=== PATIENT | female | born 1975 | race American Indian/Alaskan Native ===

== ENCOUNTER 2021-02-18 22:02 | Inpatient (IN) | payer MEDICARE ==
[2021-02-18] MEDS ORDERED: ONDANSETRON 4 MG/2 ML INJ IV ONE (22:21)
[2021-02-18] MEDS ORDERED: SODIUM CHLORIDE 0.9% 1000 ML 1,000 ML IV ONE (22:21)
[2021-02-18] MEDS ORDERED: MORPHINE 4 MG/1 ML INJ IV ONE (22:21)
[2021-02-18] MEDS ORDERED: FAMOTIDINE 20 MG/2 ML INJ IV ONE (22:21)
[2021-02-18 23:01] LABS: Basophils % (Auto) 0.4 % (0.0-1.8); Eosinophils # (Auto) 0.1 K/mm3 (0.0-0.4); Eosinophils % (Auto) 1.3 % (0.0-4.3); Hematocrit 35.5 % (30.3-42.9); Hemoglobin 11.9 gm/dl (10.1-14.3); Lymphocytes # (Auto) 0.8 K/mm3 (1.2-5.4); Lymphocytes % (Auto) 8.7 % (13.4-35.0); Mean Corpuscular HGB Conc 33 % (30-34); Mean Corpuscular Volume 81 fl (79-97); Monocytes # (Auto) 0.5 K/mm3 (0.0-0.8); Platelet Count 363 K/mm3 (140-440); Red Blood Count 4.37 M/mm3 (3.65-5.03); Red Cell Distribution Width 15.5 % (13.2-15.2)
--- NOTE | 2021-02-18 23:07 | Emergency Department Report ---
ED Abdominal Pain HPI - General Chief Complaint: Abdominal Pain Stated Complaint: ABDOMINAL PAIN Source: patient Mode of arrival: Ambulatory Limitations: No Limitations - History of Present Illness Initial Comments: Patient is a 45-year-old -[place]namese female with a history of Crohn's disease, chronic costochondritis, anxiety and depression who presents to the ED with complaint of acute onset persistent acute right upper quadrant abdominal pain that radiates to the epigastric area with nausea and vomiting for the last 4 hours. Patient states that the pain gets worse with food and vomiting. Patient denies shoulder pain, chest pain, shortness of breath, fever, chills, cough, sore throat, headache, dizziness, syncope, hematemesis, hematochezia, diarrhea, dysuria, urinary frequency and urgency, vaginal bleeding or vaginal discharge, back pain and dyspareunia or vaginal discharge. MD Complaint: abdominal pain (Right upper quadrant pain radiating to the epigastric area), other (Nausea and vomiting) -: Sudden, hour(s) (4) Location: RUQ, epigastric Radiation: RUQ, epigastric Migration to: no migration Severity scale (0 -10): 7 Quality: cramping, aching, sharp Consistency: constant Improves With: nothing Worsens With: eating, vomiting Associated Symptoms: denies other symptoms, nausea, vomiting, anorexia. denies: diarrhea, fever, chills, constipation, dysuria, hematemesis, hematochezia, melena, hematuria, syncope, other - Related Data Allergies Allergy/AdvReac Type Severity Reaction Status Date / Time methylprednisolone Allergy Hives Verified 02/18/21 22:26 [From Solu-Medrol] Penicillins AdvReac Hives Verified 02/18/21 22:25 ED Review of Systems ROS: Stated complaint: ABDOMINAL PAIN Other details as noted in HPI Constitutional: denies: chills, fever Eyes: denies: eye pain, eye discharge, vision change ENT: denies: ear pain, throat pain Respiratory: denies: cough, shortness of breath, wheezing Cardiovascular: denies: chest pain, palpitations Endocrine: no symptoms reported Gastrointestinal: abdominal pain (Right upper quadrant and epigastric pain), nausea, vomiting. denies: diarrhea Genitourinary: denies: urgency, dysuria, discharge Musculoskeletal: denies: back pain, joint swelling, arthralgia Skin: denies: rash, lesions Neurological: denies: headache, weakness, paresthesias Psychiatric: denies: anxiety, depression Hematological/Lymphatic: denies: easy bleeding, easy bruising ED Past Medical Hx - Past Medical History Additional medical history: Chron's disease, depression, anxiety, chostocondritis - Surgical History Past Surgical History?: Yes Hx Appendectomy: Yes Additional Surgical History: abdominal, - Social History Smoking Status: Former Smoker Substance Use Type: Alcohol ED Physical Exam - General Limitations: No Limitations General appearance: alert, in no apparent distress - Head Head exam: Present: atraumatic, normocephalic, normal inspection - Eye Eye exam: Present: normal appearance, PERRL, EOMI Pupils: Present: normal accommodation - ENT ENT exam: Present: normal exam, normal orophraynx, mucous membranes moist, TM's normal bilaterally, normal external ear exam - Neck Neck exam: Present: normal inspection, full ROM - Respiratory Respiratory exam: Present: normal lung sounds bilaterally. Absent: respiratory distress, wheezes, rales, stridor, chest wall tenderness, accessory muscle use, decreased breath sounds, prolonged expiratory - Cardiovascular Cardiovascular Exam: Present: regular rate, normal rhythm, normal heart sounds. Absent: systolic murmur, diastolic murmur, rubs, gallop - GI/Abdominal GI/Abdominal exam: Present: soft, tenderness (Palpable right upper quadrant and epigastric tenderness with a positive Hammond sign), guarding, normal bowel sounds. Absent: rebound, rigid, hyperactive bowel sounds, hypoactive bowel sounds, organomegaly, mass - Extremities Exam Extremities exam: Present: normal inspection, full ROM, normal capillary refill - Back Exam Back exam: Present: normal inspection, full ROM. Absent: tenderness, CVA tenderness (R), CVA tenderness (L), muscle spasm, paraspinal tenderness, vertebr al tenderness - Neurological Exam Neurological exam: Present: alert, oriented X3, CN II-XII intact, normal gait, reflexes normal - Psychiatric Psychiatric exam: Present: normal affect, normal mood - Skin Skin exam: Present: warm, dry, intact, normal color. Absent: rash ED Course Vital Signs 02/18/21 22:23 Temperature 98.2 F Pulse Rate 70 Respiratory 16 Rate Blood Pressure 133/85 [Right] O2 Sat by Pulse 98 Oximetry - Reevaluation(s) Reevaluation #1: 02/19/21 04:00 I paged and discussed the patient's case with the general surgeon on-call Dr. Barnes who advised the patient be kept n.p.o. with an option of soft diet later on once her nausea and vomiting is controlled, and to have the patient admitted by hospitalist physician on-call, and to have the patient started on IV antibiotics and pain control. Dr. Barnes to evaluate the patient subsequently upon admission. ED Medical Decision Making - Lab Data Result diagrams: 02/18/21 22:36 02/18/21 22:36 - Radiology Data [facility] [address] [place] [address] Ultrasound Report Signed Patient: PENELOPE LARIOS MR#: [id number] : 1975 Acct:[id number] Age/Sex: 45 / F ADM Date: 02/18/21 Loc: ED Attending Dr: Ordering Physician: SAEID BUTLER Date of Service: 02/18/21 Procedure(s): US abdomen limited Accession Number(s): [id number] cc: SAEID BUTLER ULTRASOUND ABDOMEN, LIMITED (RIGHT UPPER QUADRANT) INDICATION: RUQ Abdominal pain. COMPARISON: None available. FINDINGS: Pancreas: Visualized portion shows no significant abnormality. Liver: Normal. Gallbladder: Multiple calcified gallstones with posterior shadowing . Gallbladder wall measures 4 mm. Bile ducts: Normal. Common Bile Duct measures 4 mm. Free fluid: None. Additional Findings: None. IMPRESSION: 1. Cholelithiasis with thickened gallbladder wall suggestive for cholecystitis Signer Name: Yair Funk MD Signed: 02/19/2021 1:33 AM Workstation Name: [id number] Transcribed By: TL Dictated By: Yair Funk MD Electronically Authenticated By: Yair Funk MD Signed Date/Time: 02/19/21132 DD/ 1 TD/TT: - Medical Decision Making This is a 45-year-old -Vietnamese female with a history of Crohn's disease, chronic costochondritis, anxiety and depression who presents to the ED with complaint of acute onset persistent acute right upper quadrant abdominal pain that radiates to the epigastric area with nausea and vomiting for the last 4 hours. Patient states that the pain gets worse with food and vomiting. In the ED, patient is alert and oriented x3 and is not in any distress. Patient was treated for pain in the ED and also given antiemetics, antacids and normal saline 1 L IV bolus x1. All lab test results were reviewed and are all nonactionable. Gallbladder ultrasound showed cholelithiasis with thickened gallbladder wall suggestive for cholecystitis. On reevaluation, patient's pain is well controlled medications. I discussed the patient's case with the ED attending physician Dr. Tyler who advised the general surgeon be consulted and paged for further direction. I therefore paged and discussed the patient's case with the general surgeon on-call Dr. Barnes who advised that the patient be admitted to the hospital by the hospitalist physician on-call and that the patient be kept n.p.o. with an option of soft diet once her nausea and vomiting is well controlled. Dr. Barnes was advised the patient be started on IV antibiotics appropriately and she shall consult the patient subsequently. I therefore paged and discussed the patient's case with the hospitalist physician on-call Dr. Sims who admitted the patient to the hospital for further evaluation and treatment. I therefore discussed the plan of care for admission with the patient would agreed with the plan to admit to the hospital for possible lap cholecystectomy. - Differential Diagnosis Cholelithiasis; cholecystitis; GERD; gastroenteritis; gastritis; ACS; UTI; Critical care attestation.: If time is entered above; I have spent that time in minutes in the direct care of this critically ill patient, excluding procedure time. ED Disposition Clinical Impression: Acute abdominal pain in right upper quadrant, Nausea and vomiting in adult pat ient Cholelithiasis and cholecystitis without obstruction Qualifiers: Cholelithiasis location: gallbladder Cholecystitis acuity: acute Qualified Code(s): K80.00 - Calculus of gallbladder with acute cholecystitis without obstruction Disposition: 02 SHORT TERM HOSPITAL Is pt being admited?: Yes Does the pt Need Aspirin: No Condition: Stable Instructions: Abdominal Pain (ED) Time of Disposition: 03:04 Print Language: ROMANIAN
[2021-02-18 23:17] LABS: Alanine Aminotransferase 23 units/L (7-56); Albumin 4.1 g/dL (3.9-5); BUN/Creatinine Ratio 12; Blood Urea Nitrogen 12 mg/dL (7-17); Hemolysis Index 4
--- NOTE | 2021-02-19 01:38 | Ultrasound Report ---
ULTRASOUND ABDOMEN, LIMITED (RIGHT UPPER QUADRANT) INDICATION: RUQ Abdominal pain. COMPARISON: None available. FINDINGS: Pancreas: Visualized portion shows no significant abnormality. Liver: Normal. Gallbladder: Multiple calcified gallstones with posterior shadowing . Gallbladder wall measures 4 mm . Bile ducts: Normal. Common Bile Duct measures 4 mm. Free fluid: None. Additional Findings: None. IMPRESSION: 1. Cholelithiasis with thickened gallbladder wall suggestive for cholecystitis Signer Name: Yair Funk MD Signed: 02/19/2021 1:33 AM Workstation Name: [id number]
[2021-02-19 02:35] LABS: Bacteria,Urine 1+ /HPF (Negative); Bilirubin,Urine NEG (Negative); Blood,Urine LG (Negative); Color,Urine Yellow (Yellow); Mucus,Urine FEW /HPF; Protein,Urine <15 mg/dL mg/dL (Negative); Urobilinogen,Urine < 2.0 mg/dL (<2.0)
[2021-02-19] MEDS ORDERED: metroNIDAZOLE/NS 500 MG/100 ML 500 MG/100 ML BAG IV ONE ×2 (02:52)
[2021-02-19] MEDS ORDERED: MORPHINE 2 MG/1 ML INJ IV ONE (03:24)
[2021-02-19] MEDS ORDERED: MORPHINE 2 MG/1 ML INJ ONE (03:25)
[2021-02-19] MEDS ORDERED: ONDANSETRON 4 MG/2 ML INJ IV PRN ×2 (04:05→04:54)
[2021-02-19] MEDS ORDERED: MORPHINE 2 MG/1 ML INJ IV PRN (04:05)
[2021-02-19] MEDS ORDERED: ACETAMINOPHEN 325 MG TAB PO PRN ×2 (04:05→04:54)
--- NOTE | 2021-02-19 05:01 | History and Physical Report ---
History of Present Illness Date of examination: 02/19/21 Date of admission: 02/19/21 Chief complaint: Abdominal pain History of present illness: 45-year-old -[place]ym[place] female with a history of Crohn's disease, chronic costochondritis, anxiety and depression who presents to the ED with complaint of acute onset persistent acute right upper quadrant abdominal pain that radiates to the epigastric area with nausea and vomiting for the last 4 hours. Patient states that the pain gets worse with food and vomiting. Patient denies shoulder pain, chest pain, shortness of breath, fever, chills, cough, sore throat, headache, dizziness, syncope, hematemesis, hematochezia, In the emergency room abdominal ultrasound shows cholelithiasis with thickened gallbladder wall suggestive of cholecystitis. We consulted surgery for evaluation and treatment Med rec is not available Past History Past Medical History: other (Crohn's disease, costochondritis, anxiety, depression) Medications and Allergies Allergies Allergy/AdvReac Type Severity Reaction Status Date / Time methylprednisolone Allergy Hives Verified 02/18/21 22:26 [From Solu-Medrol] Penicillins AdvReac Hives Verified 02/18/21 22:25 Active Meds: Active Medications Acetaminophen (Acetaminophen 325 Mg Tab) 650 mg PO Q4H PRN PRN Reason: Pain MILD(1-3)/Fever >100.5/RAWLS Hydromorphone HCl (Hydromorphone 1 Mg/1 Ml Inj) 0.5 mg IV Q3H PRN PRN Reason: Pain , Severe (7-10) Levofloxacin/Dextrose (Levaquin 750mg/150ml) 750 mg in 150 mls @ 100 mls/hr IV Q24H SUE; Protocol Last Admin: 02/19/21 04:23 Dose: 100 mls/hr Documented by: Morphine Sulfate (Morphine 2 Mg/1 Ml Inj) 2 mg IV Q4H PRN PRN Reason: Pain, Moderate (4-6) Ondansetron HCl (Ondansetron 4 Mg/2 Ml Inj) 4 mg IV Q8H PRN PRN Reason: Nausea And Vomiting Sodium Chloride (Sodium Chloride 0.9% 10 Ml Flush Syringe) 10 ml IV BID SUE Sodium Chloride (Sodium Chloride 0.9% 10 Ml Flush Syringe) 10 ml IV PRN PRN PRN Reason: LINE FLUSH Review of Systems All systems: negative Gastrointestinal: abdominal pain, nausea, vomiting Exam - Constitutional Vitals: Temp Pulse Resp BP Pulse Ox 98.2 F 70 16 133/85 98 02/18/21 22:23 02/18/21 22:23 02/18/21 22:23 02/18/21 22:23 02/18/21 22:23 General appearance: Present: no acute distress, well-nourished - EENT Eyes: Present: PERRL ENT: hearing intact, clear oral mucosa - Neck Neck: Present: supple, normal ROM - Respiratory Respiratory effort: normal Respiratory: bilateral: CTA - Cardiovascular Heart Sounds: Present: S1 & S2. Absent: rub, click - Extremities Extremities: pulses symmetrical, No edema Peripheral Pulses: within normal limits - Abdominal General gastrointestinal: Present: soft, tender, non-distended, normal bowel sounds Female genitourinary: Present: normal - Integumentary Integumentary: Present: clear, warm, dry - Musculoskeletal Musculoskeletal: gait normal, strength equal bilaterally - Psychiatric Psychiatric: appropriate mood/affect, intact judgment & insight - Neurologic Neurologic: CNII-XII intact, moves all extremities HEART Score - HEART Score Troponin: Troponin T < 0.010 ng/mL (0.00-0.029) 02/18/21 22:36 Results - Labs CBC & Chem 7: 02/18/21 22:36 02/18/21 22:36 Labs: Laboratory Last Values WBC 9.8 K/mm3 (4.5-11.0) 02/18/21 22:36 RBC 4.37 M/mm3 (3.65-5.03) 02/18/21 22:36 Hgb 11.9 gm/dl (10.1-14.3) 02/18/21 22:36 Hct 35.5 % (30.3-42.9) 02/18/21 22:36 MCV 81 fl (79-97) 02/18/21 22:36 MCH 27 pg (28-32) L 02/18/21 22:36 MCHC 33 % (30-34) 02/18/21 22:36 RDW 15.5 % (13.2-15.2) H 02/18/21 22:36 Plt Count 363 K/mm3 (140-440) 02/18/21 22:36 Lymph % (Auto) 8.7 % (13.4-35.0) L 02/18/21 22:36 [place] % (Auto) 5.0 % (0.0-7.3) 02/18/21 22:36 Eos % (Auto) 1.3 % (0.0-4.3) 02/18/21 22:36 Baso % (Auto) 0.4 % (0.0-1.8) 02/18/21 22:36 Lymph # (Auto) 0.8 K/mm3 (1.2-5.4) L 02/18/21 22:36 [place] # (Auto) 0.5 K/mm3 (0.0-0.8) 02/18/21 22:36 Eos # (Auto) 0.1 K/mm3 (0.0-0.4) 02/18/21 22:36 Baso # (Auto) 0.0 K/mm3 (0.0-0.1) 02/18/21 22:36 Seg Neutrophils % 84.6 % (40.0-70.0) H 02/18/21 22:36 Seg Neutrophils # 8.3 K/mm3 (1.8-7.7) H 02/18/21 22:36 Sodium 139 mmol/L (137-145) 02/18/21 22:36 Potassium 3.9 mmol/L (3.6-5.0) 02/18/21 22:36 Chloride 104.5 mmol/L (98-107) 02/18/21 22:36 Carbon Dioxide 22 mmol/L (22-30) 02/18/21 22:36 Anion Gap 16 mmol/L 02/18/21 22:36 BUN 12 mg/dL (7-17) 02/18/21 22:36 Creatinine 1.0 mg/dL (0.6-1.2) 02/18/21 22:36 Estimated GFR 60 ml/min 02/18/21 22:36 BUN/Creatinine Ratio 12 % 02/18/21 22:36 Glucose 102 mg/dL (65-100) H 02/18/21 22:36 Calcium 9.0 mg/dL (8.4-10.2) 02/18/21 22:36 Total Bilirubin < 0.20 mg/dL (0.1-1.2) 02/18/21 22:36 AST 19 units/L (5-40) 02/18/21 22:36 ALT 23 units/L (7-56) 02/18/21 22:36 Alkaline Phosphatase 82 units/L (35-129) 02/18/21 22:36 Troponin T < 0.010 ng/mL (0.00-0.029) 02/18/21 22:36 Total Protein 6.8 g/dL (6.3-8.2) 02/18/21 22:36 Albumin 4.1 g/dL (3.9-5) 02/18/21 22:36 Albumin/Globulin Ratio 1.5 % 02/18/21 22:36 Lipase 65 units/L (13-60) H 02/18/21 22:36 HCG, Qual Negative (Negative) 02/18/21 22:36 Urine Color Yellow (Yellow) 02/18/21 Unknown Urine Turbidity Clear (Clear) 02/18/21 Unknown Urine pH 5.0 (5.0-7.0) 02/18/21 Unknown Ur Specific [place] 1.011 (1.003-1.030) 02/18/21 Unknown Urine Protein <15 mg/dl mg/dL (Negative) 02/18/21 Unknown Urine Glucose (UA) Neg mg/dL (Negative) 02/18/21 Unknown Urine Ketones 20 mg/dL (Negative) 02/18/21 Unknown Urine Blood Lg (Negative) 02/18/21 Unknown Urine Nitrite Neg (Negative) 02/18/21 Unknown Urine Bilirubin Neg (Negative) 02/18/21 Unknown Urine Urobilinogen < 2.0 mg/dL (<2.0) 02/18/21 Unknown Ur Leukocyte Esterase Neg (Negative) 02/18/21 Unknown Urine WBC (Auto) 1.0 /HPF (0.0-6.0) 02/18/21 Unknown Urine RBC (Auto) 7.0 /HPF (0.0-6.0) 02/18/21 Unknown U Epithel Cells (Auto) 1.0 /HPF (0-13.0) 02/18/21 Unknown Urine Bacteria (Auto) 1+ /HPF (Negative) 02/18/21 Unknown Urine Mucus Few /HPF 02/18/21 Unknown - Imaging and Cardiology US - abdomen: report reviewed Assessment and Plan VTE prophylaxis?: Chemical Plan of care discussed with patient/family: Yes - Patient Problems (1) Acute abdominal pain in right upper quadrant Current Visit: Yes Status: Acute Plan to address problem: Admit the patient to the medical floor. NPO. D5 half-normal saline at the rate of 100 cc/h. Pepcid 20 mg IV every 12 hours. Levaquin 750 mg IV daily. Metronidazole 500 mg IV every 8 hours. Reconsult surgery for further evaluation and possible surgery. Recheck CBC BMP in the morning (2) Cholelithiasis and cholecystitis without obstruction Current Visit: Yes Status: Acute Qualifiers: Cholelithiasis location: gallbladder Cholecystitis acuity: acute Qualified Code(s): K80.00 - Calculus of gallbladder with acute cholecystitis without obstruction Plan to address problem: NPO. D5 half-normal saline at the rate of 100 cc/h. Pepcid 20 mg IV every 12 hours. Levaquin 750 mg IV daily. Metronidazole 500 mg IV every 8 hours. Reconsult surgery for further evaluation and possible surgery. Recheck CBC BMP in the morning (3) Nausea and vomiting in adult patient Current Visit: Yes Status: Acute Plan to address problem: NPO. D5 half-normal saline at the rate of 100 cc/h. Pepcid 20 mg IV every 12 hours. Zofran 4 mg IV every 6 hours as needed (4) Crohn's disease Current Visit: Yes Status: Acute Plan to address problem: Stable. We will continue the home medication. Pepcid 20 mg IV every 12 hours (5) Anxiety Current Visit: Yes Status: Acute Plan to address problem: Stable. We will continue the home medication (6) Depression Current Visit: Yes Status: Acute Plan to address problem: Stable. We will continue the home medication (7) DVT prophylaxis Current Visit: Yes Status: Acute Plan to address problem: SCD for DVT prophylaxis. Pepcid 20 mg IV every 12 hours for GI prophylaxis. P atient is a full code
[2021-02-19] MEDS: D5W/0.45% NACL 1,000 ML IV SCH ×2 (06:51→23:59)
[2021-02-19] MEDS: ALBUTEROL 2.5 MG/3 ML NEBU IH PRN ×2 (07:31→18:38)
[2021-02-19] MEDS ORDERED: IPRATROPIUM/ALBUTEROL SULFATE 3 ML AMPUL.NEB IH SCH (08:00)
--- NOTE | 2021-02-19 09:30 | Progress Note ---
Assessment and Plan Assessment and plan: -- Acute abdominal pain in right upper quadrant Current Visit: Yes Status: Acute Work-up is consistent with acute cholecystitis N.p.o. status, surgeon evaluated, lap cholecystectomy today IV Pepcid --Cholelithiasis and cholecystitis without obstruction Current Visit: Yes Status: Acute NPO. Pain medications, IV fluids, IV antibiotics Scheduled for lap cholecystectomy today --Nausea and vomiting in adult patient Current Visit: Yes Status: Acute Due to acute cholecystitis, surgery today Pain medications, antiemetics, IV fluids --History of Crohn's disease Current Visit: Yes Status: Acute Stable. Follow GI upon discharge --History of depression Current Visit: Yes Status: Acute Stable. No suicidal thoughts or ideation May see her psychiatrist upon discharge --Obesity ; BMI 32.3 Current Visit: Yes Status: Chronic Weight reduction when medically stable -- DVT prophylaxis Current Visit: Yes Status: Acute SCD for DVT prophylaxis. Follow-up surgery findings and surgeon's recommendations Possible discharge in 1 to 2 days if stable and cleared by surgeon Continue current management Advance care 40 minutes History Interval history: I have seen and examined the patient in ER awaiting room assignment Admitted with abdominal pain and acute cholecystitis Evaluated by surgeon. Scheduled for lap cholecystectomy Patient n.p.o. status, complains of right upper quadrant pain Asking for some water, vital signs reviewed Hospitalist Physical - Constitutional Vitals: Temp Pulse Resp BP Pulse Ox 98.8 F 77 18 130/79 98 02/19/21 08:08 02/19/21 08:08 02/19/21 08:08 02/19/21 08:08 02/19/21 08:08 General appearance: Present: no acute distress, well-nourished, obese - EENT Eyes: Present: PERRL, EOM intact - Neck Neck: Present: supple, normal ROM - Respiratory Respiratory effort: normal Respiratory: bilateral: diminished, negative: rales, rhonchi, wheezing - Cardiovascular Rhythm: regular Heart Sounds: Present: S1 & S2 - Extremities Extremities: no ischemia, No edema - Abdominal General gastrointestinal: soft, tender (Right upper quadrant no guarding no rigidity), non-distended, normal bowel sounds - Integumentary Integumentary: Present: clear, warm - Psychiatric Psychiatric: appropriate mood/affect, cooperative - Neurologic Neurologic: CNII-XII intact, moves all extremities HEART Score - HEART Score Troponin: Troponin T < 0.010 ng/mL (0.00-0.029) 02/18/21 22:36 Results - Labs CBC & Chem 7: 02/18/21 22:36 02/18/21 22:36 Labs: Laboratory Last Values WBC 9.8 K/mm3 (4.5-11.0) 02/18/21 22:36 RBC 4.37 M/mm3 (3.65-5.03) 02/18/21 22:36 Hgb 11.9 gm/dl (10.1-14.3) 02/18/21 22:36 Hct 35.5 % (30.3-42.9) 02/18/21 22:36 MCV 81 fl (79-97) 02/18/21 22:36 MCH 27 pg (28-32) L 02/18/21 22:36 MCHC 33 % (30-34) 02/18/21 22:36 RDW 15.5 % (13.2-15.2) H 02/18/21 22:36 Plt Count 363 K/mm3 (140-440) 02/18/21 22:36 Lymph % (Auto) 8.7 % (13.4-35.0) L 02/18/21 22:36 [place] % (Auto) 5.0 % (0.0-7.3) 02/18/21 22:36 Eos % (Auto) 1.3 % (0.0-4.3) 02/18/21 22:36 Baso % (Auto) 0.4 % (0.0-1.8) 02/18/21 22:36 Lymph # (Auto) 0.8 K/mm3 (1.2-5.4) L 02/18/21 22:36 [place] # (Auto) 0.5 K/mm3 (0.0-0.8) 02/18/21 22:36 Eos # (Auto) 0.1 K/mm3 (0.0-0.4) 02/18/21 22:36 Baso # (Auto) 0.0 K/mm3 (0.0-0.1) 02/18/21 22:36 Seg Neutrophils % 84.6 % (40.0-70.0) H 02/18/21 22:36 Seg Neutrophils # 8.3 K/mm3 (1.8-7.7) H 02/18/21 22:36 Sodium 139 mmol/L (137-145) 02/18/21 22:36 Potassium 3.9 mmol/L (3.6-5.0) 02/18/21 22:36 Chloride 104.5 mmol/L (98-107) 02/18/21 22:36 Carbon Dioxide 22 mmol/L (22-30) 02/18/21 22:36 Anion Gap 16 mmol/L 02/18/21 22:36 BUN 12 mg/dL (7-17) 02/18/21 22:36 Creatinine 1.0 mg/dL (0.6-1.2) 02/18/21 22:36 Estimated GFR 60 ml/min 02/18/21 22:36 BUN/Creatinine Ratio 12 % 02/18/21 22:36 Glucose 102 mg/dL (65-100) H 02/18/21 22:36 Calcium 9.0 mg/dL (8.4-10.2) 02/18/21 22:36 Total Bilirubin < 0.20 mg/dL (0.1-1.2) 02/18/21 22:36 AST 19 units/L (5-40) 02/18/21 22:36 ALT 23 units/L (7-56) 02/18/21 22:36 Alkaline Phosphatase 82 units/L (35-129) 02/18/21 22:36 Troponin T < 0.010 ng/mL (0.00-0.029) 02/18/21 22:36 Total Protein 6.8 g/dL (6.3-8.2) 02/18/21 22:36 Albumin 4.1 g/dL (3.9-5) 02/18/21 22:36 Albumin/Globulin Ratio 1.5 % 02/18/21 22:36 Lipase 65 units/L (13-60) H 02/18/21 22:36 HCG, Qual Negative (Negative) 02/18/21 22:36 Urine Color Yellow (Yellow) 02/18/21 Unknown Urine Turbidity Clear (Clear) 02/18/21 Unknown Urine pH 5.0 (5.0-7.0) 02/18/21 Unknown Ur Specific [place] 1.011 (1.003-1.030) 02/18/21 Unknown Urine Protein <15 mg/dl mg/dL (Negative) 02/18/21 Unknown Urine Glucose (UA) Neg mg/dL (Negative) 02/18/21 Unknown Urine Ketones 20 mg/dL (Negative) 02/18/21 Unknown Urine Blood Lg (Negative) 02/18/21 Unknown Urine Nitrite Neg (Negative) 02/18/21 Unknown Urine Bilirubin Neg (Negative) 02/18/21 Unknown Urine Urobilinogen < 2.0 mg/dL (<2.0) 02/18/21 Unknown Ur Leukocyte Esterase Neg (Negative) 02/18/21 Unknown Urine WBC (Auto) 1.0 /HPF (0.0-6.0) 02/18/21 Unknown Urine RBC (Auto) 7.0 /HPF (0.0-6.0) 02/18/21 Unknown U Epithel Cells (Auto) 1.0 /HPF (0-13.0) 02/18/21 Unknown Urine Bacteria (Auto) 1+ /HPF (Negative) 02/18/21 Unknown Urine Mucus Few /HPF 02/18/21 Unknown Active Medications - Current Medications Current Medications: Generic Name Dose Route Start Last Admin Trade Name Freq PRN Reason Stop Dose Admin Acetaminophen 650 mg 02/19/21 04:54 Acetaminophen 325 Mg Tab PO Q4H PRN Pain MILD(1-3)/Fever >100.5/RAWLS Albuterol 2.5 mg 02/19/21 04:54 02/19/21 07:31 Albuterol 2.5 Mg/3 Ml Nebu IH 2.5 mg Q4HRT PRN Administration Shortness Of Breath Albuterol/Ipratropium 1 ampul 02/19/21 08:00 02/19/21 07:31 Ipratropium/Albuterol Sulfate 3 Ml Ampul.Neb IH 1 ampul Q6HRT SUE Administration Famotidine 20 mg 02/19/21 10:00 Famotidine 20 Mg/2 Ml Inj IV BID SUE Hydromorphone HCl 0.5 mg 02/19/21 04:05 Hydromorphone 1 Mg/1 Ml Inj IV Q3H PRN Pain , Severe (7-10) Dextrose/Sodium Chloride 1,000 mls @ 100 mls/hr 02/19/21 05:00 02/19/21 06:51 D5/0.45ns IV 100 mls/hr DIRECT SUE Administration Levofloxacin/Dextrose 750 mg in 150 mls @ 100 mls/hr 02/20/21 04:00 Levaquin 750mg/150ml IV Q24H SUE Protocol Metronidazole 500 mg in 100 mls @ 100 mls/hr 02/19/21 11:00 Flagyl 500 Mg/100 Ml IV Q8H COUNT INCLUDES THE [facility] Protocol Morphine Sulfate 2 mg 02/19/21 04:05 Morphine 2 Mg/1 Ml Inj IV Q4H PRN Pain, Moderate (4-6) Ondansetron HCl 4 mg 02/19/21 04:54 Ondansetron 4 Mg/2 Ml Inj IV Q8H PRN Nausea And Vomiting Sodium Chloride 10 ml 02/19/21 10:00 Sodium Chloride 0.9% 10 Ml Flush Syringe IV BID SUE Sodium Chloride 10 ml 02/19/21 04:54 Sodium Chloride 0.9% 10 Ml Flush Syringe IV PRN PRN LINE FLUSH
[2021-02-19] MEDS: FAMOTIDINE 20 MG/2 ML INJ IV SCH (10:12)
[2021-02-19] MEDS ORDERED: SCOPOLAMINE TRANSDERMAL PATCH 72 HR TD SCH (11:00)
[2021-02-19] MEDS ORDERED: metroNIDAZOLE/NS 500 MG/100 ML 500 MG/100 ML BAG IV SCH (11:00)
--- NOTE | 2021-02-19 14:58 | Anesthesia Consultation ---
Anesthesia Consult and Med Hx Date of service: 02/19/21 - Airway Anesthetic Teeth Evaluation: Good, Bridges (upper left) ROM Head & Neck: Adequate Mental/Hyoid Distance: Adequate Mallampati Class: Class II Intubation Access Assessment: Probably Good - Pre-Operative Health Status ASA Pre-Surgery Classification: ASA2 Proposed Anesthetic Plan: General - Pulmonary Hx Smoking: Yes (former smoker) - Central Nervous System Hx Back Pain: No (osteoarthritis) Hx Psychiatric Problems: Yes (depression) - Endocrine Hx Liver Disease: Yes (gallbladder disease)
--- NOTE | 2021-02-19 15:35 | Consultation ---
History of Present Illness Consult date: 02/19/21 Reason for consult: abdominal pain Chief complaint: Abdominal pain - History of present illness History of present illness: 45-year-old female with past medical history of depression, Crohn's disease who presented to the emergency room with abdominal pain for the last 1 day. She states it was dull at first and then became crampy. The pain then significantly worsened after she ate [place] barbecue and rice. The pain became sharp and localized in the right upper quadrant. No radiation. No alleviating factors. The pain remained constant. Positive nausea and vomiting. No fevers or chills. No chest pain or shortness of breath. She has never had pain like this in the past. Past History Past Medical History: other (Crohn's disease, costochondritis, anxiety, depression) Past Surgical History: appendectomy, bowel surgery Social history: no significant social history Family history: no significant family history Medications and Allergies Allergies Allergy/AdvReac Type Severity Reaction Status Date / Time methylprednisolone Allergy Hives Verified 02/18/21 22:26 [From Solu-Medrol] Penicillins AdvReac Hives Verified 02/18/21 22:25 Active Meds: Active Medications Acetaminophen (Acetaminophen 325 Mg Tab) 650 mg PO Q4H PRN PRN Reason: Pain MILD(1-3)/Fever >100.5/RAWLS Albuterol (Albuterol 2.5 Mg/3 Ml Nebu) 2.5 mg IH Q4HRT PRN PRN Reason: Shortness Of Breath Last Admin: 02/19/21 07:31 Dose: 2.5 mg Documented by: Famotidine (Famotidine 20 Mg/2 Ml Inj) 20 mg IV BID SUE Last Admin: 02/19/21 10:12 Dose: 20 mg Documented by: Hydromorphone HCl (Hydromorphone 1 Mg/1 Ml Inj) 0.5 mg IV Q3H PRN PRN Reason: Pain , Severe (7-10) Dextrose/Sodium Chloride (D5/0.45ns) 1,000 mls @ 100 mls/hr IV DIRECT SUE Last Infusion: 02/19/21 09:42 Dose: 100 mls/hr Documented by: Levofloxacin/Dextrose (Levaquin 750mg/150ml) 750 mg in 150 mls @ 100 mls/hr IV Q24H SUE; Protocol Metronidazole (Flagyl 500 Mg/100 Ml) 500 mg in 100 mls @ 100 mls/hr IV Q8H SUE; Protocol Last Admin: 02/19/21 11:41 Dose: 100 mls/hr Documented by: Morphine Sulfate (Morphine 2 Mg/1 Ml Inj) 2 mg IV Q4H PRN PRN Reason: Pain, Moderate (4-6) Ondansetron HCl (Ondansetron 4 Mg/2 Ml Inj) 4 mg IV Q8H PRN PRN Reason: Nausea And Vomiting Scopolamine (Scopolamine Transdermal Patch 72 Hr) 1 each TD ONCE@1100 [facility] Stop: 02/19/21 18:00 Last Admin: 02/19/21 13:54 Dose: 1 each Documented by: Sodium Chloride (Sodium Chloride 0.9% 10 Ml Flush Syringe) 10 ml IV BID [facility] Last Admin: 02/19/21 10:13 Dose: 10 ml Documented by: Sodium Chloride (Sodium Chloride 0.9% 10 Ml Flush Syringe) 10 ml IV PRN PRN PRN Reason: LINE FLUSH Review of Systems All systems: negative (10 point ROS performed and negative except for that listed in HPI) Exam Vital Signs Temp Pulse Resp BP Pulse Ox 98.2 F 70 16 133/85 98 02/18/21 22:23 02/18/21 22:23 02/18/21 22:23 02/18/21 22:23 02/18/21 22:23 Narrative exam: Gen.: Awake, alert, oriented x3. No apparent distress ENT: Trachea midline. No lymphadenopathy. No scleral icterus or conjunctival pallor CV: S1, S2 present Respiratory: No audible wheezes Abdomen: Soft, nondistended, mild tenderness to palpation in the right upper quadrant. No rebound, rigidity, guarding Extremities: No clubbing, cyanosis, edema Results - Labs 02/18/21 22:36 02/18/21 22:36 Abnormal lab results 02/18/21 02/18/21 Range/Units 22:36 22:36 MCH 27 L (28-32) pg RDW 15.5 H (13.2-15.2) % Lymph % (Auto) 8.7 L (13.4-35.0) % Lymph # (Auto) 0.8 L (1.2-5.4) K/mm3 Seg Neutrophils % 84.6 H (40.0-70.0) % Seg Neutrophils # 8.3 H (1.8-7.7) K/mm3 Glucose 102 H (65-100) mg/dL Lipase 65 H (13-60) units/L Diabetes panel 02/18/21 Range/Units 22:36 Sodium 139 (137-145) mmol/L Potassium 3.9 (3.6-5.0) mmol/L Chloride 104.5 (98-107) mmol/L Carbon Dioxide 22 (22-30) mmol/L BUN 12 (7-17) mg/dL Creatinine 1.0 (0.6-1.2) mg/dL Glucose 102 H (65-100) mg/dL Calcium 9.0 (8.4-10.2) mg/dL AST 19 (5-40) units/L ALT 23 (7-56) units/L Alkaline Phosphatase 82 (35-129) units/L Total Protein 6.8 (6.3-8.2) g/dL Albumin 4.1 (3.9-5) g/dL Calcium panel 02/18/21 Range/Units 22:36 Calcium 9.0 (8.4-10.2) mg/dL Albumin 4.1 (3.9-5) g/dL Pituitary panel 02/18/21 Range/Units 22:36 Sodium 139 (137-145) mmol/L Potassium 3.9 (3.6-5.0) mmol/L Chloride 104.5 (98-107) mmol/L Carbon Dioxide 22 (22-30) mmol/L BUN 12 (7-17) mg/dL Creatinine 1.0 (0.6-1.2) mg/dL Glucose 102 H (65-100) mg/dL Calcium 9.0 (8.4-10.2) mg/dL Adrenal panel 02/18/21 Range/Units 22:36 Sodium 139 (137-145) mmol/L Potassium 3.9 (3.6-5.0) mmol/L Chloride 104.5 (98-107) mmol/L Carbon Dioxide 22 (22-30) mmol/L BUN 12 (7-17) mg/dL Creatinine 1.0 (0.6-1.2) mg/dL Glucose 102 H (65-100) mg/dL Calcium 9.0 (8.4-10.2) mg/dL Total Bilirubin < 0.20 (0.1-1.2) mg/dL AST 19 (5-40) units/L ALT 23 (7-56) units/L Alkaline Phosphatase 82 (35-129) units/L Total Protein 6.8 (6.3-8.2) g/dL Albumin 4.1 (3.9-5) g/dL - Imaging US - abdomen: report reviewed, image reviewed Assessment and Plan 45-year-old female with acute cholecystitis Plan: 1. NPO 2. IVF 3. IV abx 4. prn pain and nausea control 5. DVT ppx 6. Recommend cholecystectomy. I discussed imaging findings with the patient. All risks, benefits, alternatives to surgery were discussed and questions answered. Consent obtained. We will proceed to the OR today. Thank you for this consultation. Please call with any questions or concerns. Evaluation and treatment of this patient was during the time of the national and state emergency arising from COVID19 coronavirus pandemic. Treatment and procedures performed meet the current and available best practice and guidelines for patient during the COVID pandemic.
[2021-02-19] MEDS ORDERED: LIDOCAINE (1%) 10 MG/1 ML VIAL 20 ML MDV ONE (15:39)
[2021-02-19] MEDS ORDERED: BUPIVACAINE/PF (0.25%) 2.5 MG/ML 30 ML VIAL INFILTRATI ONE (15:40)
[2021-02-19] MEDS ORDERED: LIDOCAINE MPF (2%) 20 MG/1 ML VIAL 5 ML ONE (19:25)
[2021-02-19] MEDS ORDERED: ROCURONIUM 50 MG/5 ML INJ IV ONE (19:25)
[2021-02-19] MEDS ORDERED: ONDANSETRON 4 MG/2 ML INJ ONE (19:25)
[2021-02-19] MEDS ORDERED: HYDROmorphone 1 MG/1 ML INJ ONE ×2 (19:26→21:36)
[2021-02-19] MEDS ORDERED: propofoL 200 MG/20 ML VIAL IV ONE (19:26)
[2021-02-19] MEDS ORDERED: GLYCOPYRROLATE 0.4 MG/2 ML INJ ONE (20:42)
[2021-02-19] MEDS ORDERED: NEOSTIGMINE 10MG/10 ML INJ MDV ONE (20:42)
[2021-02-19] MEDS ORDERED: HYDROcodone/ACETAMINOPHEN 5-325 MG TAB PO PRN (21:01)
[2021-02-19] MEDS ORDERED: HYDROCORTISONE 1% CREAM 28.4GM TP PRN (21:01)
--- NOTE | 2021-02-19 21:01 | Operative Report ---
Operative Report Operative Report: Date of operation: 02/20/2020 Preoperative diagnosis: Acute cholecystitis postOperative diagnoses: Acute calculus cholecystitis Procedure performed: Laparoscopic cholecystectomy Surgeon: Malachi Barnes DO Newspaper Stuffer surgeon: MD Jenn Anesthesia: Gen. endotracheal anesthesia, local Findings: Pericholecystic fluid, gallbladder with stones Specimen: Gallbladder Estimated blood loss: <10cc Complications: None Disposition: Stable to PACU HPI an indication: 45-year-old female who presented to the emergency room with severe, sudden onset right upper quadrant abdominal pain associated with nausea and vomiting. Work-up revealed cholecystitis on ultrasound. All appropriate labs and imaging were reviewed. It was recommended that the patient undergo cholecystectomy. All risks, benefits, alternatives to surgery were discussed in detail and questions answered. Consent was obtained for laparoscopic, possible open cholecystectomy, possible cholangiogram. Procedure in detail: The patient was identified in the preoperative area and taken back to the operating room, placed on the operating room table in supine position. After anesthesia was induced, the abdomen was prepped and draped in usual sterile fashion and timeout was performed. Local anesthetic was infiltrated into all of the skin incision sites. A annette incision was made in the left upper quadrant at Hoffman's point through which a Veress needle was inserted. The Veress needle positioning was confirmed using saline drop test and the abdomen insufflated to 15 mmHg without incident. The patient had a history of previous lower midline abdominal incision. Therefore a 5 mm Optiview trocar was placed through an incision in the right upper quadrant. The abdomen was inspected and there was no underlying injury to any of the abdominal structures. The Veress needle was identified and removed. There were adhesions from the omentum to the anterior abdominal wall in the lower mohan-abdomen. An additional 12 mm subxyphoid port, 5 mm supraumbilical, and 5 mm right lateral abdominal ports were placed under direct visualization. The patient was then placed into reverse Trendelberg and tilted to the left. The gallbladder was mildly distended and was retracted cephalad and above the liver. The cystic duct and artery were carefully skeletonized. The medial and lateral peritoneal attachments to the gallbladder were dissected using a combination of blunt dissection with the [place] and hook electrocautery. The cystic duct and ar amee were the only 2 structures seen entering the gallbladder and the critical view was successfully obtained. 3 clips were placed on the proximal aspect of the cystic duct and 1 distally and this was transected in between the clips using EndoShears. 2 clips were placed on the proximal aspect of the cystic artery and 1 distally this was transected in between the clips using EndoShears. The gallbladder was dissected from the liver bed using electrocautery. The gallbladder was placed into a Endo Catch bag and removed from the abdomen via the 12mm port. The gallbladder fossa was then inspected and there was no identifiable bleeding or bile leakage. Hemostasis was ensured. The clips on the cystic duct and artery were visualized and intact. The patient was then placed into neutral position. The 12 mm port fascia was closed with interrupted 0 Vicryl suture using the Luisito Galarza device. The remaining ports were removed under direct visualization. Skin incisions were closed with 4-0 Monocryl subcuticular stitches and skin glue. All skin incisions were once again infiltrated with local anesthetic. The gallbladder was examined on the back table and opened. There were multiple medium sized stones and bile in the gallbladder. At the end case all sponge, instrument, sharp counts were correct 2. The patient was awoken from anesthesia, extubated, and taken to PACU in stable condition.
--- NOTE | 2021-02-19 22:25 | Post Anesthesia Evaluation ---
- Post Anesthesia Evaluation Patient Participated: Yes Airway Patent: Yes Stable Respiratory Function: Yes Nausea/Vomiting: No Temp > 96.8F: Yes Pain Manageable: Yes Adequeate Hydration: Yes Anesthesia Complications: No
--- NOTE | 2021-02-19 22:25 | Anesthesia Day of Surgery ---
Anesthesia Day of Surgery - Day of Surgery Patient Examined: Yes Patient H&P Reviewed: Yes Patient is NPO: Yes
[2021-02-20] MEDS: HYDROmorphone 1 MG/1 ML INJ IV PRN ×4 (00:02→14:05)
[2021-02-20] MEDS: FAMOTIDINE 20 MG/2 ML INJ IV SCH ×2 (00:10→09:00)
[2021-02-20 04:59] VITALS: BP 106/56
[2021-02-20 06:26] LABS: Basophils % (Auto) 0.3 % (0.0-1.8); Eosinophils % (Auto) 0.6 % (0.0-4.3); Lymphocytes # (Auto) 0.9 K/mm3 (1.2-5.4); Lymphocytes % (Auto) 11.1 % (13.4-35.0); Mean Corpuscular HGB Conc 28 % (30-34); Mean Corpuscular Volume 99 fl (79-97); Monocytes # (Auto) 0.6 K/mm3 (0.0-0.8); Monocytes % (Auto) 7.1 % (0.0-7.3); Platelet Count 353 K/mm3 (140-440); Red Blood Count 3.73 M/mm3 (3.65-5.03)
[2021-02-20 06:27] LABS: Hematocrit 36.8 % (30.3-42.9); Hemoglobin 10.3 gm/dl (10.1-14.3)
[2021-02-20 06:33] LABS: Blood Urea Nitrogen 6 mg/dL (7-17); Calcium 7.8 mg/dL (8.4-10.2); Hemolysis Index 4
[2021-02-20 06:46] LABS: BUN/Creatinine Ratio 9
[2021-02-20] MEDS: D5W/0.45% NACL 1,000 ML IV SCH ×2 (08:57→09:00)
--- NOTE | 2021-02-20 10:48 | Electrocardiograph Report ---
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
--- NOTE | 2021-02-20 11:37 | Progress Note ---
Assessment and Plan 45-year-old female status post laparoscopic cholecystectomy, POD 1 for acute cholecystitis Plan: 1. reg diet 2. prn pain control 3. May be discharged home from surgery standpoint. I discussed discharge instructions with the patient along with 2-week follow-up. Patient instructed to call office to make an appointment Thank you for this consultation. Please call with any questions or concerns. Subjective Date of service: 02/20/21 Narrative: Patient seen and examined. Complains of soreness near her incisions. She is tolerating liquids. No nausea or vomiting. No fevers or chills. Objective Vital Signs - 12hr 02/20/21 02/20/21 02/20/21 03:48 04:58 08:56 Temperature 98.1 F 98.2 F Pulse Rate 64 56 L Respiratory 18 18 20 Rate Blood Pressure 99/62 106/56 O2 Sat by Pulse 93 95 Oximetry - General physical appearance Narrative Exam: Gen.: Awake, alert, oriented x3. No apparent distress ENT: Trachea midline. No lymphadenopathy. No scleral icterus or conjunctival pallor CV: S1, S2 present Respiratory: No audible wheezes Abdomen: Soft, nondistended, nontender. Incisions clean, dry, intact no rebound, rigidity, guarding Extremities: No clubbing, cyanosis, edema - Labs 02/20/21 05:46 02/20/21 05:46 Diabetes panel 02/20/21 Range/Units 05:46 Sodium 136 L (137-145) mmol/L Potassium 3.7 (3.6-5.0) mmol/L Chloride 103.6 (98-107) mmol/L Carbon Dioxide 24 (22-30) mmol/L BUN 6 L (7-17) mg/dL Creatinine 0.7 (0.6-1.2) mg/dL Glucose 124 H (65-100) mg/dL Calcium 7.8 L (8.4-10.2) mg/dL Calcium panel 02/20/21 Range/Units 05:46 Calcium 7.8 L (8.4-10.2) mg/dL Pituitary panel 02/20/21 Range/Units 05:46 Sodium 136 L (137-145) mmol/L Potassium 3.7 (3.6-5.0) mmol/L Chloride 103.6 (98-107) mmol/L Carbon Dioxide 24 (22-30) mmol/L BUN 6 L (7-17) mg/dL Creatinine 0.7 (0.6-1.2) mg/dL Glucose 124 H (65-100) mg/dL Calcium 7.8 L (8.4-10.2) mg/dL Adrenal panel 02/20/21 Range/Units 05:46 Sodium 136 L (137-145) mmol/L Potassium 3.7 (3.6-5.0) mmol/L Chloride 103.6 (98-107) mmol/L Carbon Dioxide 24 (22-30) mmol/L BUN 6 L (7-17) mg/dL Creatinine 0.7 (0.6-1.2) mg/dL Glucose 124 H (65-100) mg/dL Calcium 7.8 L (8.4-10.2) mg/dL
--- NOTE | 2021-02-20 12:49 | Discharge Summary ---
<VIPUL HAIRSTON - Last Filed: 03/19/21 10:58> Providers - Providers Date of Admission: 02/19/21 06:25 Attending physician: CONRADO SALGADO 02/19/21 03:57 Consult to Physician [CONS] Stat Comment: Admission to hospitalist Consulting Provider: VIPUL HAIRSTON Physician Instructions: Keep NPO, with option of soft diet; IV Abx Reason For Exam: Cholelithiasis with cholecystitis Primary care physician: INSPECTOR CASING Hospitalization Reason for admission: abd pain Condition: Stable Disposition: 01 HOME / SELF CARE / HOMELESS Core Measure Documentation - Palliative Care Palliative Care/ Comfort Measures: Not Applicable - Core Measures Any of the following diagnoses?: none Exam - Constitutional Vitals: Temp Pulse Resp BP Pulse Ox 98.2 F 56 L 20 106/56 95 02/20/21 04:58 02/20/21 04:58 02/20/21 14:05 02/20/21 04:58 02/20/21 04:58 Plan Activity: other (No driving if taking prescription pain medications, no heavy lifting for 1 week) Diet: regular Wound: open to air, per your surgeon's advice (May shower today. Pat incisions dry. Do not scrub off the skin glue. Do not submerge incisions in bath, hot tub, pool) Follow up with: INDIA REID MD [Staff Physician] - 7 Days VIPUL HAIRSTON DO [Staff Physician] - 14 Days SANJAY CORONADO MD [Primary Care Provider] - 7 Days Prescriptions: HYDROcodone/APAP 5-325 [[place] 5-325 mg TAB] 1 each PO Q6H PRN #14 tablet PRN Reason: Pain, Moderate (4-6) <CONRADO SALGADO - Last Filed: 05/15/21 19:53> Providers - Providers Date of Admission: 02/19/21 06:25 Date of discharge: 02/20/21 Attending physician: CONRADO SALGADO 02/19/21 03:57 Consult to Physician [CONS] Stat Comment: Admission to hospitalist Consulting Provider: VIPUL HAIRSTON Physician Instructions: Keep NPO, with option of soft diet; IV Abx Reason For Exam: Cholelithiasis with cholecystitis Primary care physician: INSPECTOR CASING Hospitalization Hospital course: 45 y/o female Admitted with abdominal pain and acute cholecystitis Evaluated by surgeon. Scheduled for lap cholecystectomy Patient tolerated the procedure well patient was cleared for discharge following cholecystectomy by surgery Patient was then discharged home in stable condition with outpatient follow-up Final Discharge Diagnosis (Prints w/discharge instructions): --Acute cholecystitis Time spent for discharge: 34 minutes Exam - Physical Exam Narrative exam: GENERAL: well-developed and obese female lying on bed appeared to be in no discomfort. HEENT: Normocephalic. Atraumatic. No conjunctival congestion or icterus. Patient has moist mucous membranes. NECK: Supple. Trachea midline. CHEST/LUNGS: Clear to auscultated bilaterally, breathing nonlabored. No wheezes crackles or rhonchi. HEART/CARDIOVASCULAR: Regular in rate and rhythm. S1 and S2 positive. ABDOMEN: Abdomen is soft, nontender. Patient has normal bowel sounds. SKIN: There is no rash. Warm and dry. NEURO: No focal motor deficit. Follows command. MUSCULOSKELETAL: No joint effusion or tenderness. EXTRIMITY: No edema, no cyanosis or clubbing. PSYCH: Cooperative. - Constitutional Vitals: Temp Pulse Resp BP Pulse Ox 98.2 F 56 L 20 106/56 95 02/20/21 04:58 02/20/21 04:58 02/20/21 08:56 02/20/21 04:58 02/20/21 04:58 Plan Activity: advance as tolerated Weight Bearing Status: Non-Weight Bearing Diet: advance as tolerated
== END 2021-02-20 18:30 | disposition home or self-care (01) | DRG 418 ==
LOC: ED 22:02 → 3A 02-19 06:25
PROVIDERS: ADMIT Hospitalist; ATTEND Internal Medicine
PROC: 0FT44ZZ Resection of Gallbladder, Percutaneous Endoscopic Approach (ICD-10-PCS; principal; 2021-02-19)
DX: K80.00 Calculus of gallbladder with acute cholecystitis without obstruction (principal); K50.90 Crohn's disease, unspecified, without complications; F32.9 Major depressive disorder, single episode, unspecified; E66.9 Obesity, unspecified; F41.9 Anxiety disorder, unspecified; Z68.32 Body mass index [BMI] 32.0-32.9, adult; Z88.8 Allergy status to other drugs, medicaments and biological substances; Z88.0 Allergy status to penicillin; Z87.891 Personal history of nicotine dependence
CPT/HCPCS: 36415; 76705; 80048; 80053; 81001; 83690; 84484; 84703; 85025; 88304; 93005; G0378; J7070; J1170; J1956; J2270; J2405; J2704; J2710; J7030

== ENCOUNTER 2021-08-26 07:55 | Emergency (ER) | payer MEDICARE ==
[2021-08-26] MEDS ORDERED: IPRATROPIUM 0.02% NEBU 2.5 ML IH ONE (08:50)
[2021-08-26] MEDS ORDERED: ALBUTEROL 2.5 MG/3 ML NEBU IH ONE (08:50)
--- NOTE | 2021-08-26 08:55 | Emergency Department Report ---
ED Shortness of Breath HPI - General Chief Complaint: Chest Pain Stated Complaint: SOB/ASTHMA Time Seen by Provider: 08/26/21 08:50 Source: patient Mode of arrival: Ambulatory Limitations: No Limitations - History of Present Illness Initial Comments: Patient is 46 years old female with history of Crohn's disease and asthma. Patient presented to the ER complaining of shortness of breath and diffuse chest pain since yesterday. Patient stated that she is out of her asthma medication. Patient denied any fever or chills. No abdominal pain, nausea or vomiting. MD Complaint: shortness of breath, chest pain -: Last night Severity: moderate Known History Of: asthma Associated Symptoms: chest pain - Related Data Previous Rx's Medication Instructions Recorded Last Taken Type HYDROcodone/APAP 5-325 [[place] 1 each PO Q6H PRN #14 tablet 02/20/21 Unknown Rx 5-325 mg TAB] Allergies Allergy/AdvReac Type Severity Reaction Status Date / Time methylprednisolone Allergy Hives Verified 08/26/21 08:53 [From Solu-Medrol] Penicillins AdvReac Hives Verified 08/26/21 08:53 ED Review of Systems ROS: Stated complaint: SOB/ASTHMA Other details as noted in HPI Comment: All other systems reviewed and negative Constitutional: denies: chills, fever Respiratory: shortness of breath, SOB with exertion, SOB at rest, wheezing. denies: cough, orthopnea Cardiovascular: chest pain. denies: palpitations Gastrointestinal: denies: abdominal pain, nausea, vomiting, diarrhea Musculoskeletal: denies: back pain Neurological: denies: headache, weakness, numbness, paresthesias, confusion ED Past Medical Hx - Past Medical History Hx Congestive Heart Failure: No Hx Diabetes: No Hx Liver Disease: Yes (gallbladder disease) Hx Asthma: Yes Hx COPD: No Hx HIV: No Additional medical history: Chron's disease, depression, anxiety, chostocondritis - Surgical History Hx Cholecystectomy: Yes Hx Appendectomy: Yes Additional Surgical History: abdominal, dnc - Social History Smoking Status: Never Smoker - Medications Home Medications: Home Medications Medication Instructions Recorded Confirmed Last Taken Type HYDROcodone/APAP 5-325 [[place] 1 each PO Q6H PRN #14 tablet 02/20/21 Unknown Rx 5-325 mg TAB] ED Physical Exam - General Limitations: No Limitations General appearance: alert, in no apparent distress - Head Head exam: Present: atraumatic, normocephalic, normal inspection - Eye Eye exam: Present: normal appearance - ENT ENT exam: Present: normal exam, normal orophraynx, mucous membranes moist - Neck Neck exam: Present: normal inspection. Absent: tenderness, meningismus - Respiratory Respiratory exam: Present: wheezes, decreased breath sounds. Absent: respiratory distress, rales, rhonchi - Cardiovascular Cardiovascular Exam: Present: regular rate, normal rhythm, normal heart sounds - GI/Abdominal GI/Abdominal exam: Present: soft, normal bowel sounds. Absent: distended, tenderness, guarding, rebound, rigid, organomegaly, mass, bruit - Extremities Exam Extremities exam: Present: normal inspection, full ROM, normal capillary refill. Absent: tenderness, pedal edema, joint swelling, calf tenderness - Back Exam Back exam: Present: normal inspection, full ROM. Absent: CVA tenderness (R), CVA tenderness (L) - Neurological Exam Neurological exam: Present: alert, oriented X3, CN II-XII intact, normal gait, reflexes normal - Psychiatric Psychiatric exam: Present: normal mood - Skin Skin exam: Present: warm, intact, normal color ED Course Vital Signs 08/26/21 08/26/21 08:09 09:36 Temperature 98.6 F Pulse Rate 94 H Pulse Rate [ 78 Bilateral] Respiratory 20 Rate Respiratory 22 Rate [Bilateral ] Blood Pressure 122/83 O2 Sat by Pulse 97 Oximetry ED Medical Decision Making - Lab Data Result diagrams: 08/26/21 09:17 08/26/21 09:17 - EKG Data -: EKG Interpreted by Oh EKG shows normal: sinus rhythm Rate: normal - EKG Data Interpretation: no acute changes - Radiology Data Radiology results: report reviewed - Medical Decision Making Patient is 46 years old female with history of Crohn's disease and asthma. Patient presented to the ER complaining of shortness of breath and diffuse chest pain since yesterday. Patient stated that she is out of her asthma medication. Patient denied any fever or chills. No abdominal pain, nausea or vomiting. Patient received albuterol, Atrovent. Patient stated that she is feeling much better. EKG is unremarkable. Chest x-ray is negative for acute finding. Labs reviewed and is unremarkable including a negative troponin. Patient given prescription for albuterol and advised to follow-up with her primary care physician in the next 2 to 3 days and to return to the ER if she develop any new symptoms. Critical care attestation.: If time is entered above; I have spent that time in minutes in the direct care of this critically ill patient, excluding procedure time. ED Disposition Clinical Impression: Asthma exacerbation, Acute chest pain Disposition: HOME / SELF CARE / HOMELESS Is pt being admited?: No Condition: Stable Instructions: Chest Pain (ED), Asthma, Adult, Nonspecific Chest Pain, Adult Referrals: PRIMARY CARE,MD [Referring] - 3-5 Days
--- NOTE | 2021-08-26 09:16 | XRay Report ---
CHEST 1 VIEW INDICATION / CLINICAL INFORMATION: Dyspnea. COMPARISON: None available. FINDINGS: SUPPORT DEVICES: None. HEART / MEDIASTINUM: No significant abnormality. LUNGS / PLEURA: No significant pulmonary or pleural abnormality. No pneumothorax. ADDITIONAL FINDINGS: No significant additional findings. IMPRESSION: 1. No acute findings. Signer Name: Niru Castle MD Signed: 08/26/2021 9:12 AM Workstation Name: [id number]
[2021-08-26 09:35] LABS: Basophils % (Auto) 0.7 % (0.0-1.8); Eosinophils # (Auto) 0.5 K/mm3 (0.0-0.4); Hematocrit 33.9 % (30.3-42.9); Hemoglobin 10.7 gm/dl (10.1-14.3); Lymphocytes % (Auto) 16.2 % (13.4-35.0); Mean Corpuscular HGB Conc 32 % (30-34); Mean Corpuscular Volume 78 fl (79-97); Monocytes # (Auto) 0.4 K/mm3 (0.0-0.8); Monocytes % (Auto) 7.3 % (0.0-7.3); Platelet Count 306 K/mm3 (140-440); Red Blood Count 4.35 M/mm3 (3.65-5.03); Red Cell Distribution Width 16.1 % (13.2-15.2)
[2021-08-26 09:46] LABS: BUN/Creatinine Ratio 10; Blood Urea Nitrogen 8 mg/dL (7-17); Calcium 8.6 mg/dL (8.4-10.2); Hemolysis Index 2
[2021-08-26 11:38] VITALS: BP 105/81
--- NOTE | 2021-08-27 14:17 | Electrocardiograph Report ---
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
== END 2021-08-26 11:46 | disposition home or self-care (01) ==
LOC: ED 07:55
DX: J45.909 Unspecified asthma, uncomplicated (principal); R07.9 Chest pain, unspecified; Z90.49 Acquired absence of other specified parts of digestive tract; Z90.89 Acquired absence of other organs
CPT/HCPCS: 36415; 71045; 80048; 84484; 85025; 93005; 94640; 94644; 99284